=== PATIENT | female | born 1975 | race Caucasian/White ===

== ENCOUNTER 2021-08-16 11:58 | Observation (INO) ==
[2021-08-16 12:43] LABS: Bilirubin,Urine Negative (Negative); Blood,Urine Trace (Negative); Clarity,Urine Clear (Clear); Color,Urine Colorless (Yellow); Glucose,Urine (UA) Normal (Normal); Ketones,Urine Negative (Negative); Leukocyte Esterase,Urine Negative (Negative); Nitrite,Urine Negative (Negative); PH,Urine 6.5 pH Units (5.0-8.0); Protein,Urine Negative (Neg-Trace); RBC,Urine 0-3 per hpf (0-3); Specific Gravity,Urine < 1.005 (1.010-1.025); Squamous Epithelial Cell,Urine Moderate per hpf (None-Few); Urobilinogen,Urine Normal (Normal); WBC,Urine 0-3 per hpf (0-3)
[2021-08-16] MEDS ORDERED: Isovue-370 500 ML BOTTLE IVP ONE (14:49)
[2021-08-16] MEDS ORDERED: Ketorolac 15 MG/ML VIAL IVP ONE (14:50)
[2021-08-16 16:15] LABS: Influenza A PCR Negative (Negative); Influenza B PCR Negative (Negative); Resp. Syncytial Virus PCR Negative (Negative)
[2021-08-16 16:24] LABS: Basophils % 0.4 %; Eosinophils % 0.7 %; Hematocrit 40.6 % (35.3-44.9); Hemoglobin 13.5 g/dL (11.5-15.4); Immature Granulocytes % 0.4 % (0-4); Lymphocytes # 1.1 K/mcL (0.6-4.6); Lymphocytes % 20.4 %; Mean Corpuscular HGB Conc 33.3 g/dL (31.6-35.5); Mean Corpuscular Hemoglobin 30.8 pg (28.0-33.3); Mean Corpuscular Volume 92.5 fL (83.0-100.0); Mean Platelet Volume 8.9 fL (9.4-12.4); Monocytes # 0.6 K/mcL (0.0-1.3); Monocytes % 10.5 %; Neutrophils # 3.8 K/mcL (1.6-8.9); Platelet Count 210 K/mcL (140-400); Red Blood Count 4.39 M/mcL (3.82-4.97); Red Cell Distribution Width 12.5 % (11.5-14.5); Segmented Neutrophils % 67.6 %; White Blood Count 5.5 K/mcL (4.3-11.1)
[2021-08-16 16:27] LABS: SARS-CoV-2 by PCR (In House) Negative (Negative)
[2021-08-16 16:42] LABS: Alanine Aminotransferase 9 Units/L (7-52); Albumin 4.2 g/dL (3.5-5.7); Albumin/Globulin Ratio 1.4 (1.1-2.2); Alkaline Phosphatase 49 Units/L (34-104); Aspartate Amino Transferase 18 Units/L (13-39); BUN/Creatinine Ratio 11 (6-26); Bilirubin,Indirect 0.4 mg/dL (0.0-1.0); Bilirubin,Total 0.4 mg/dL (0.3-1.0); Blood Urea Nitrogen 7 mg/dL (6-20); Calcium 8.8 mg/dL (8.6-10.3); Carbon Dioxide 26 mEq/L (23-29); Chloride 102 mEq/L (98-107); Globulin 2.9 g/dL (2.4-3.5); Glucose 91 mg/dL (70-105); Lipase 21 Units/L (11-82); Osmolality,Calculated 286 (280-300); Potassium 3.2 mEq/L (3.5-5.1); Sodium 139 mEq/L (136-145); Total Protein 7.1 g/dL (6.4-8.9); Troponin I < 0.03 ng/mL (< 0.04); eGFR For African Americans > 60 (> 60); eGFR For Non-African Americans > 60 (> 60)
[2021-08-16] MEDS ORDERED: MetroNIDAZOLE 500 MG/100 ML 500 MG/100 ML BAG IVPB ONE (19:39)
[2021-08-16] MEDS ORDERED: cefTRIAXone 1,000 MG in 0.9 % Sodium Chloride Mini Bag 100 ML IVPB ONE (19:39)
[2021-08-16] MEDS ORDERED: *HR* HYDROmorphone (PF) 1 MG/ML SYRINGE IVP ONE ×2 (20:05→20:25)
[2021-08-16] MEDS ORDERED: Promethazine 6.25 MG in Water for inj. (sterile) 20 ML IVPB PRN (20:13)
[2021-08-16] MEDS ORDERED: *HR* OxyCODONE Immed Rel 5 MG TABLET PO PRN (20:13)
[2021-08-16] MEDS ORDERED: *HR* HYDROmorphone PF 0.5 MG/0.5 ML SYRINGE IVP PRN (20:13)
[2021-08-16] MEDS ORDERED: Ondansetron 4 MG/2 ML VIAL IVP PRN (20:13)
[2021-08-16 21:39] LABS: Chlamydia Trachomatis DNA Ur NOT DETECTED (Not Detect)
[2021-08-16] MEDS ORDERED: *HR* Magnesium Sulfate 1 GM/2 ML VIAL ONE (22:46)
[2021-08-16] MEDS ORDERED: Lidocaine -MPF 2% 5 ML VIAL ONE (22:46)
[2021-08-16] MEDS ORDERED: Ondansetron 4 MG/2 ML VIAL ONE (22:46)
[2021-08-16] MEDS ORDERED: *HR* Rocuronium Bromide 50 MG/5 ML VIAL ONE (22:46)
[2021-08-16] MEDS ORDERED: CefOXitin 1,000 MG VIAL ONE (22:46)
[2021-08-16] MEDS ORDERED: Lidocaine HCL 4 ML Topical Solution (Laryng-O-Jet Kit Sterile Pak) TP ONE (22:46)
[2021-08-16] MEDS ORDERED: *HR* Succinylcholine 200 MG/10 ML VIAL IVP ONE (22:46)
[2021-08-16] MEDS ORDERED: *HR* FentaNYL (PF) 100 MCG/2 ML VIAL ONE ×2 (22:47→23:30)
[2021-08-16] MEDS ORDERED: Ketorolac 30 MG/ML VIAL ONE (23:22)
[2021-08-16] MEDS ORDERED: Sugammadex Sodium 200 MG/2 ML VIAL IV ONE (23:25)
[2021-08-16] MEDS ORDERED: Ringers Solution, Lactated 1,000 ML ONE (23:59)
[2021-08-17] MEDS ORDERED: *HR* HYDROmorphone (PF) 1 MG/ML SYRINGE IVP ONE (00:10)
[2021-08-17] MEDS ORDERED: Ondansetron 4 MG/2 ML VIAL IVP PRN (00:10)
[2021-08-17] MEDS: Piperacillin/Tazobactam 3.375 GM in 0.9 % Sodium Chloride Mini Bag 100 ML IVPB SCH ×3 (00:57→16:24)
[2021-08-17 03:11] LABS: Prothrombin Time 10.7 Seconds (9.4-12.1)
[2021-08-17 03:14] LABS: Activated Partial Thrombo Time 25.5 Seconds (26.0-36.0)
[2021-08-17 06:46] VITALS: O2SAT 95
[2021-08-17] MEDS: *HR* OxyCODONE/APAP 5/325 TABLET PO PRN ×2 (07:42→12:13)
[2021-08-17] MEDS: 0.9 % Sodium Chloride 1,000 ML IVC SCH ×2 (11:00→16:24)
[2021-08-17 14:36] VITALS: BP 108/69; PULSE 78; TEMP 98
== END 2021-08-17 17:45 | disposition home or self-care (01) ==
LOC: EMEROOARM 11:58 → 3ANU 11:58
PROVIDERS: ADMIT Surgery; ATTEND Surgery